=== PATIENT | male | born 1975 | race Caucasian/White ===

== ENCOUNTER 2021-01-31 07:54 | Emergency (ER) | payer SELFPAY ==
[2021-01-31 07:58] VITALS: BP 148/104; PULSE 88; RESP 16; TEMP 36.3; O2SAT 99; BMI 23.6
[2021-01-31 08:07] VITALS: O2SAT 99
--- NOTE | 2021-01-31 08:14 | EX.ED.DYSGE1 ---
HPI History of Present Illness Chief Complaint: Cold Sx Informant: patient Narrative Narrative: 45-year-old male states that he woke up this morning with nasal congestion, scratchy throat, chest tightness, and a sensation that he may have diarrhea. He called work and they needed him to get a Covid test and as he just moved here he came to the emergency room because he is not established with anybody. No reported fevers PFSH PFSH Medical History no medical history Home Medications NK 01/31/21 [History Last Taken Unknown] Allergy/AdvReac Type Severity Reaction Status Date / Time codeine Allergy PT UNSURE Verified 01/31/21 07:58 OF REACTION Surgical History no surgical history Social History (Updated 01/31/21 @ 08:[address] Emeterio Duke, DO) current gender identity: male Smoking Status: Current every day smoker tobacco type: cigarettes ROS ROS ED Constitutional Constitutional ED: Denies chills, fever(s) or weight loss Eyes Eyes: Denies change in vision or diplopia ENT ENT ED: Reports rhinorrhea and sore throat; Denies ear pain Cardiovascular Cardiovascular: Denies chest pain, orthopnea, palpitations or racing heartbeat Respiratory/Chest Respiratory/Chest: Denies cough, dyspnea or orthopnea Gastrointestinal Gastrointestinal: Denies abdominal pain, diarrhea, nausea or vomiting Genitourinary Genitourinary ED: Denies dysuria, hematuria or urinary frequency Musculoskeletal Musculoskeletal: Denies arthralgias or myalgias Integumentary Denies abscess or rash Neurologic Neurologic: Denies headache(s) or weakness Psychiatric Psychiatric: Denies anxiety, depression, suicidal ideation or suicidal thoughts Endocrine Endocrinology: Denies polydipsia, polyphagia or polyuria Allergic/Immunologic Allergic/Immunologic ED: Denies mouth swelling, tongue swelling or urticaria EXAM Physical Exam Const Vital Signs: 01/31/21 07:58 01/31/21 08:07 Temperature 97.4 F L Temperature Source Temporal Pulse Rate 88 Respiratory Rate 16 Respiratory Effort Short of Breath Respiratory Depth Normal Respiratory Pattern Normal Blood Pressure 148/104 H Blood Pressure Mean 118 Pulse Ox 99 Oxygen Delivery Method Room Air Room Air Positive well nourished and well developed General Appearance ED: well developed HEENT Reports normocephalic, head/scalp atraumatic, TM's clear and moist mucous membranes HEENT Narrative: Mild turbinate edema with rhinorrhea Negative for trauma Tympanic Membrane ED: Yes TM's clear Eyes PERRL and EOMs intact bilaterally Neck no lymphadenopathy, supple and no JVD Resp normal respiratory effort and clear to auscultation bilaterally Cardio regular rate, regular rhythm and no murmurs GI normal to inspection, nondistended, normoactive bowel sounds and non-tender Palpation: soft Back/Spine no CVA tenderness and normal ROM Extremity normal to inspection General Extremety ED: Negative for edema General Extremity: Negative for edema Neuro oriented x3 and CN's II-XII intact bilaterally Sensorium / Orientation: alert Motor Exam: strength 5/5 throughout Psych mental status grossly normal Mood & Affect: Negative for depressed or tearful Skin no rashes or lesions noted and no wounds MDM MDM MDM Narrative Medical decision making narrative: Patient's rapid Covid was negative. He was advised that he is being tested with only a couple hours worth of symptoms. And this may provide a false negative. He should still mask and observe himself. Return if worsening or concerns Discharge Plan Triage Chief Complaint: Cold Sx ED Provider: Emeterio Duke Dx/Rx/DC Orders Clinical Impression: Acute viral syndrome Instructions: ED Viral Syndrome (Adult) Prescriptions: No Action NK RF: 0 Primary Care Provider: Care Physician,No Primary Referrals: Devorah Brown MD [STAFF PHYSICIAN] - As Needed (for primary care ) Care Physician,No Primary [Primary Care Provider] - Activity Restrictions/Additional Instructions: Your Covid test was negative today. We would still recommend you mask and monitor yourself. As you have only had a few hours of symptoms this may result in a false negative test. Disposition Disposition: Home, Self Care
[2021-01-31 09:19] VITALS: PULSE 72; RESP 18; O2SAT 96
== END 2021-01-31 09:23 | disposition home or self-care (01) ==
PROVIDERS: Emergency Provider Emergency Medicine
DX: B34.9 Viral infection, unspecified (principal); Z20.822 Contact with and (suspected) exposure to COVID-19; R09.81 Nasal congestion; R09.89 Other specified symptoms and signs involving the circulatory and respiratory systems; F17.210 Nicotine dependence, cigarettes, uncomplicated
CPT/HCPCS: 87426; 99282

== ENCOUNTER 2021-05-06 17:26 | Emergency (ER) | payer OTHER, SELFPAY ==
[2021-05-06 17:26] VITALS: BP 125/87; PULSE 84; RESP 16; TEMP 36; O2SAT 100; BMI 23.6
--- NOTE | 2021-05-06 17:51 | EX.ED.UPPERE ---
HPI History of Present Illness Chief Complaint: Laceration Narrative Narrative: 45-year-old male, [id number], presents with injury to his right thumb that he sustained at 9:00 this morning, over 8 hours ago. He states he was working on his [id number], and a jagged piece of metal lacerated his right thumb pad across the thumb joint. He wrapped it up and continue to work. His came home, and told him that he needed stitches. Patient's last tetanus immunization was 2 years ago. He denies other injuries. He denies any bony tenderness to his thumb, and he did not sustain a crush injury. He presents with a laceration across his right thumb on the volar aspect. PFSH [facility] Home Medications NK 01/31/21 [History Last Taken Unknown] Allergy/AdvReac Type Severity Reaction Status Date / Time codeine Allergy PT UNSURE Verified 05/06/21 17:44 OF REACTION Social History Smoking Status: Former smoker ROS ROS ED ROS Narrative Constitutional: No fever, no chills. HEENT: No sore throat. No neck pain. No loss of vision. No rhinorrhea. Cardiovascular: No chest pain. No palpitations. No pedal edema. Respiratory: No cough, no shortness of breath. Abdominal: No abdominal pain. No nausea. No vomiting. Genitourinary: No dysuria. No hematuria. Musculoskeletal: No myalgias. No arthralgias. Neurologic: No headaches. No dizziness. No lightheadedness. Skin: No rash. No change in color. Laceration to right thumb pad. Psychiatric: No depression. No anxiety. EXAM Physical Exam Narrative Exam Narrative: Afebrile. Vital signs noted. HEENT: Normocephalic. Atraumatic. PERRL, EOMI. Neck soft and supple. No point tenderness or step off. Cardiovascular: Regular rate and rhythm. No murmurs, rubs, or gallops appreciated. Respiratory: No tachypnea. Lungs clear to auscultation bilaterally. Gastrointestinal: Abdomen soft, nontender, with normoactive bowel sounds. No rebound or guarding. Neurological: Awake. Alert. Nonfocal, nonlateralizing. Skin: No rash. Normal color. No pallor. There is a 2.2 cm laceration with mild skin avulsion across the right thumb pad, and the IP joint. He has good capillary refill. No bony tenderness. He is able to flex and extend the tip of his right thumb. He is uninjured at the wrist and above. Palpable radial pulse. No active bleeding. Musculoskeletal: No pedal edema. Full range of motion extremities. Const Vital Signs: 05/06/21 17:26 Temperature 96.8 F L Temperature Source Temporal Pulse Rate 84 Respiratory Rate 16 Blood Pressure 125/87 H Blood Pressure Mean 99 Pulse Ox 100 Oxygen Delivery Method Room Air MDM MDM MDM Narrative Medical decision making narrative: Patient was told that this wound is older than 6 hours and that he has a greater chance of infection than if he would have come in earlier. However, given the size of his laceration, I do feel that he needs skin approximation. See procedure note for details. He was told of the risk of infection and scarring and acknowledges an understanding. As this is a delayed presentation, skin edges were approximated, but not tightly. He will have the sutures removed by his primary care physician in 10 days. Return instructions to the emergency department were reviewed. Disposition is discharged home in stable condition. Procedures Lacerations Right thumb laceration: Length: 26.4 in Depth: Skin Shape: Linear (With slight irregularity and skin avulsion) Prep: Elisabet Laceration repair: Irrigated, Lidocaine (1%), Local, Skin sutures and Wound explored Irrigated (ml): 200 Number of Sutures/Hosea: 7 Suture Information: Ethilon and 4-0 Comment: Patient tolerated procedure well Discharge Plan Triage Chief Complaint: Laceration ED Provider: Dalton Hernandez Dx/Rx/DC Orders Clinical Impression: Laceration of thumb, right Instructions: ED Laceration, Hand: All Closures Prescriptions: No Action NK RF: 0 Primary Care Provider: Care Physician,No Primary Referrals: Carola Shrestha MD [STAFF PHYSICIAN] - 10 Day for suture removal Care Physician,No Primary [Primary Care Provider] - Disposition Disposition: Home, Self Care
[2021-05-06] MEDS: Lidocaine 1% (20 ml mdv) 20 ML Vial 10 ML INFILT (18:25)
== END 2021-05-06 18:52 | disposition home or self-care (01) ==
PROVIDERS: Emergency Provider Emergency Medicine; Visit Provider Emergency Medicine
DX: S61.011A Laceration without foreign body of right thumb without damage to nail, initial encounter (principal); Z87.891 Personal history of nicotine dependence; X58.XXXA Exposure to other specified factors, initial encounter
CPT/HCPCS: 12001; 99282

== ENCOUNTER 2021-05-09 09:23 | Emergency (ER) | payer OTHER, SELFPAY ==
[2021-05-09 09:24] VITALS: BP 135/86; PULSE 82; RESP 17; TEMP 37.3; O2SAT 97; BMI 23.3
--- NOTE | 2021-05-09 10:13 | EDS_ITS ---
HPI History of Present Illness Chief Complaint: General Illness Narrative Narrative: 45-year-old male presenting with chief complaint of facial rash over his face daughter. This is in the distribution of the mask has been wearing. He also has a rash around where his hat has been on his head. Patient states he had a laceration repaired on his right thumb on the first and he was told to watch for signs of infection. He has not had a fever but does state that he feels cold and sometimes is sweaty. He denies a cough, shortness of breath. He denies abdominal pain, nausea, vomiting, diarrhea. He states that his thumb feels like it is improving. He has no sign of infection from his thumb and has been monitoring it. He denies any new soaps, dyes, linens, no detergents etc. Patient's rash is clearly isolated to only his face. PFSH PFSH Medical History no medical history Home Medications doxycycline hyclate 100 mg PO DAILY #7 cap 05/09/21 [Rx Last Taken Unknown] prednisone 50 mg PO DAILY 5 Days #25 tab 05/09/21 [Rx Last Taken Unknown] Allergy/AdvReac Type Severity Reaction Status Date / Time codeine Allergy PT UNSURE Verified 05/09/21 09:23 OF REACTION Surgical History no surgical history Social History Smoking Status: Former smoker ROS ROS ED Constitutional Constitutional ED: Reports chills and sweats; Denies fever(s) Eyes Eyes: Denies blurry vision or diplopia ENT ENT ED: Denies rhinorrhea or sore throat Cardiovascular Cardiovascular: Denies chest pain or palpitations Respiratory/Chest Respiratory/Chest: Denies cough or dyspnea Gastrointestinal Gastrointestinal: Denies abdominal pain, nausea or vomiting Genitourinary Genitourinary ED: Denies dysuria or hematuria Musculoskeletal Musculoskeletal: Denies arthralgias or myalgias Integumentary Reports rash Neurologic Neurologic: Denies headache(s) or weakness Psychiatric Psychiatric: Denies anxiety or depression Endocrine Endocrinology: Denies polydipsia or polyuria EXAM Physical Exam Const Vital Signs: 05/09/21 09:24 Temperature 99.2 F H Temperature Source Temporal Pulse Rate 82 Respiratory Rate 17 Respiratory Effort Normal Non-Labored Respiratory Pattern Normal Blood Pressure 135/86 H Blood Pressure Mean 102 Pulse Ox 97 Oxygen Delivery Method Room Air Positive well nourished General Appearance ED: NAD ORVILLEENT Reports moist mucous membranes Negative for trauma Eyes EOMs intact bilaterally Neck no lymphadenopathy and supple Chest Wall inspection of chest normal Resp normal respiratory effort and clear to auscultation bilaterally Neuro oriented x3, CN's II-XII intact bilaterally and no sensory deficits noted Sensorium / Orientation: alert Motor Exam: strength 5/5 throughout Skin Skin Narrative: Erythematous urticarial rash in the distribution of the patient's care 95 mask. There is also erythema around the scalp line where his winter Is. The rest of the face is free of rash. Right thumb has no sign of infection. There is no drainage. There is no lymphangitic streaking. Right hand and right upper extremity are nontender. No lymphadenopathy. MDM MDM MDM Narrative Medical decision making narrative: Patient with facial rash which looks to be focally under the ring of his winter And on his face where his mask is. It is itching in nature and appears to be allergic in nature. He has not had a fever. Examination of his right hand shows that his hand is healing well there is no discharge from his sutures. There is no swelling. He has minimal pain. There is no lymphangitic streaking. Because of his concern with feeling cold and hot I did obtain blood work and his CBC shows no leukocytosis. His hemoglobin hematocrit are stable. Platelets are normal. Renal function electrolytes within normal limits. Patient was given Solu-Medrol and Benadryl and he states that his itching has improved significantly. I do not believe this is cellulitic in nature. I will put him on a burst of prednisone for home. He can take Benadryl with this. I counseled him that if his rash should not improve that I will send him a [id number] prescription for doxycycline. He is given return precautions. Impression: 1. Contact dermatitis Lab Data Labs: Laboratory Results - last 24 hr 05/09/21 05/09/21 10:53 10:53 WBC 4.5 RBC 4.72 Hgb 14.9 Hct 44.3 MCV 93.9 MCH 31.6 MCHC 33.6 RDW Std Deviation 40.1 RDW Coeff of Jessika 11.6 Plt Count 194 MPV 10.3 Immature Gran % (Auto) 0.200 Neut % (Auto) 38.5 L Lymph % (Auto) 44.3 H [place] % (Auto) 15.6 H Eos % (Auto) 0.7 Baso % (Auto) 0.7 Absolute Neuts (auto) 1.7 L Absolute Lymphs (auto) 1.99 Nucleated RBC % 0 Sodium 137 Potassium 4.2 Chloride 104 Carbon Dioxide 26.0 Anion Gap 7 BUN 12 Creatinine 1.08 Estim Creat Clear Calc 84.56 Est GFR (MDRD) Af Amer 94 Est GFR (MDRD) Non-Af 78 BUN/Creatinine Ratio 11.1 Glucose 97 Calcium 8.4 L Discharge Plan Triage Chief Complaint: General Illness ED Provider: Gerald De Santiago Dx/Rx/DC Orders Instructions: ED Contact Dermatitis Prescriptions: New doxycycline hyclate 100 mg capsule 100 mg PO DAILY Qty: 7 RF: 0 prednisone 10 mg tablet 50 mg PO DAILY 5 Days Qty: 25 RF: 0 Stand Alone Forms: ED Work / School Excuse Primary Care Provider: Care Physician,No Primary Referrals: Care Physician,No Primary [Primary Care Provider] - Disposition Disposition: Home, Self Care Discharge Date/Time: 05/09/21 12:51
[2021-05-09 11:02] LABS: Absolute Lymphocyte Count 1.99 X10^3/uL (0.83-4.51); Absolute Neutrophil Count 1.7 X10^3/uL (2.0-7.7); Basophil# 0.03 X10^3/uL; Basophil% 0.7 % (0-1); Eosinophil# 0.03 X10^3/uL; Eosinophils% 0.7 % (0-5); Hematocrit 44.3 % (40-54); Hemoglobin 14.9 g/dL (13.0-16.5); Lymphocyte # 1.99 X10^3/ul (0.83-4.51); Lymphocyte % 44.3 % (19-41); Mean Corp Hgb Conc 33.6 g/dL (32-36); Mean Corpuscular Hgb 31.6 pg (27.0-32.0); Mean Corpuscular Volume 93.9 fL (80-94); Mean Platelet Vol. 10.3 fl (6.2-12.0); Monocyte% 15.6 % (0-10); NRBC Flagged by Analyzer 0 % (0-5); Neutrophil # 1.73 X10^3/uL (2.7-7.7); Neutrophil % 38.5 % (47-70); Platelet Count 194 K/mm3 (150-450); RBC Distribution Width CV 11.6 % (11.6-14.6); RBC Distribution Width SD 40.1 fl (35.1-43.9); Red Blood Count 4.72 M/mm3 (4.6-6.2); White Blood Count 4.5 K/mm3 (4.4-11.0)
[2021-05-09 11:15] LABS: Anion Gap 7 (5-15); BUN 12 mg/dL (7-18); BUN/Creat Ratio 11.1 RATIO (10-20); Calcium,Total 8.4 mg/dL (8.5-10.1); Chloride 104 mmol/L (98-107); Creatinine, Serum 1.08 mg/dL (0.70-1.30); EST Glomerular Filtration Rate 78 mL/min (>60); Est Glom Filt Rate - Afr Amer 94 mL/min (>60); Estimated Creatinine Clearance 84.56 ml/min; Glucose 97 mg/dL (74-106); Potassium 4.2 mmol/L (3.5-5.1); Sodium Level 137 mmol/L (136-145)
[2021-05-09] MEDS: MethylPREDNISolone 125 MG/2 ML Vial IV (11:18)
[2021-05-09] MEDS: DiphenhydrAMINE 50 MG/ML Syringe 25 MG IV (11:18)
--- NOTE | 2021-05-09 11:49 | CM.ED ---
SW Note Referral Source: Case Find Referral Reason: No PCP SW met with patient and provided him with [facility] Healthcare Provider list and encouraged him to contact provider for PCP. SW remains available if needs arise. Plan: Resources provided Cydney QUINTERO
== END 2021-05-09 12:51 | disposition home or self-care (01) ==
PROVIDERS: Emergency Provider Student in an Organized Health Care Education/Training Program; Visit Provider Student in an Organized Health Care Education/Training Program
DX: L25.9 Unspecified contact dermatitis, unspecified cause (principal); Z87.891 Personal history of nicotine dependence; S61.011D Laceration without foreign body of right thumb without damage to nail, subsequent encounter
CPT/HCPCS: 80048; 85025; 96374; 96375; 99283

== ENCOUNTER 2022-05-27 12:29 | Emergency (ER) | payer OTHER, SELFPAY ==
[2022-05-27 12:29] VITALS: BP 105/83; PULSE 77; RESP 16; TEMP 35.4; O2SAT 99; BMI 21.5
--- NOTE | 2022-05-27 12:44 | EDS_ITS ---
HPI HPI - GI History of Present Illness Chief Complaint: Nausea/Vomiting Detail of Chief Complaint: This morning. Denies any abdominal pain. Informant: patient Diarrhea/Melena/Hematochezia GI Symptom: Negative for Diarrhea or Melena Associated Symptoms Associated Symptoms: Negative for Dysuria or Frequency Narrative Narrative: Healthy 46-year-old male no signal past medical or surgical history. Denies any prior abdominal surgeries. States today around 7 AM to start having nausea and vomiting. No diarrhea. No fever. Denies any abdominal pain. Lives at home with his and son and they are not sick. He denies any dysuria. No hematemesis. No melena. Prior similar symptoms: Yes Recent Illness/Hospitalization: No PFSH PFSH Medical History Laceration of left elbow Home Medications cephalexin 500 mg capsule 500 mg PO TID #21 caps 12/26/21 [Rx Last Taken Unknown] ondansetron 4 mg disintegrating tablet 4 mg PO Q8H PRN PRN Nausea #10 tabs 05/27/22 [Rx Last Taken Unknown] Allergy/AdvReac Type Severity Reaction Status Date / Time codeine Allergy PT UNSURE Verified 01/12/22 17:16 OF REACTION Surgical History no surgical history no surgical history Social History Smoking Status: Former smoker ROS ROS ED ROS Narrative Nausea and vomiting today. No abdominal pain. No fever. No dysuria. Review of Systems ROS Unobtainable: Denies due to encephalopathy Constitutional Constitutional ED: Denies chills or fever(s) ENT ENT ED: Denies ear pain Cardiovascular Cardiovascular: Denies chest pain Respiratory/Chest Respiratory/Chest: Denies cough or dyspnea Gastrointestinal Gastrointestinal: Reports nausea and vomiting; Denies abdominal pain, constipation, diarrhea or melena Genitourinary Genitourinary ED: Denies dysuria or hematuria Musculoskeletal Musculoskeletal: Denies arthralgias Integumentary Denies abscess Neurologic Neurologic: Denies headache(s) Psychiatric Psychiatric: Denies anxiety Endocrine Endocrinology: Denies polydipsia Hematologic/Lymphatic Hematologic/Lymphatic: Denies easy bleeding Allergic/Immunologic Allergic/Immunologic ED: Denies mouth swelling EXAM Physical Exam Narrative Exam Narrative: 38-year-old male vital signs stable afebrile. Does not look septic or toxic. Does not look significantly dehydrated. H EENT exam unremarkable. Moist with members. Neck nontender no lymphadenopathy. Lungs clear to auscultation bilaterally. Heart regular rhythm rate about 80 no murmur. Abdomen soft, nontender, nondistended, normal bowel sounds without peritoneal signs. No hernia or mass. No distention. No obstruction. No right upper nor any right lower quadrant tenderness. Moving all 4 extremities. Back nontender. Neurologically is awake and alert with no focal motor deficits. Mildly anxious. Const Vital Signs: 05/27/22 12:29 Temperature 95.7 F L Temperature Source Temporal Pulse Rate 77 Respiratory Rate 16 Blood Pressure 105/83 H Blood Pressure Mean 90 Pulse Ox 99 Oxygen Delivery Method Room Air Positive well nourished and well developed; Negative for obese, cachectic, contractures or unkempt General Appearance ED: well developed and NAD; Negative for unkempt, cachectic, contractures or pallor Nutritional Appearance: Negative for cachectic or obese HEENT Reports moist mucous membranes normocephalic and atraumatic; Negative for trauma or tenderness Eyes PERRL and EOMs intact bilaterally General Eye ED: Negative for pale conjunctiva or scleral icterus Neck no lymphadenopathy, supple and no JVD General: Negative for tenderness Lymph Lymphatic: Negative for other Resp normal respiratory effort and clear to auscultation bilaterally Effort and Inspection: Negative for respiratory distress Auscultation: Negative for rales, rhonchi or wheezes Cardio regular rate, regular rhythm, S1 normal heart sound, S2 normal heart sound and no murmurs Rate: Negative for bradycardia Rhythm: Negative for abnormal rhythm GI non-tender, non-distended and no masses Inspection: Negative for abdominal distention Auscultation: normoactive bowel sounds Palpation: soft; Negative for tender, guarding, rigid, hepatomegaly, splenomegaly, hernia, mass, pulsatile mass or rebound tenderness present Back/Spine no CVA tenderness General Back: Negative for CVA tenderness Cervical Spine: Negative for cervical spine tenderness Thoracic Spine / Upper Back: Negative for thoracic spinal tenderness Lumbar Spine / Lower Back: Negative for lumbar spinal tenderness Neuro CN's II-XII intact bilaterally and moves all extremities Sensorium / Orientation: alert, oriented to person, oriented to place and orien shereen to time; Negative for orientation impaired or confused Motor Exam: strength 5/5 throughout Psych mental status grossly normal and thought process normal Appearance: Negative for unkempt Attitude: No agitated Mood & Affect: Negative for depressed or tearful Skin no wounds General Skin Exam: Negative for jaundice or pallor Lesions: no lesions Rashes: no rashes Trauma: Negative for abrasion Nails: Negative for discolored MDM MDM MDM Narrative Medical decision making narrative: 46-year-old male with nausea vomiting most likely secondary to viral syndrome. He does smoke marijuana occasionally could be also hyperemesis due to cannabis. Will be treated with a liter normal saline and Zofran and p.o. fluid challenge and reassess. He has no abdominal pain. I do not think he needs any imaging or CAT scan. He does not need labs at this time. He will be reassessed. Multiple repeat exams patient is doing well. Abdomen is benign. Nontender. No abdominal pain. At 1:52 PM his nausea is resolved. He received a liter normal saline. He has been able to drink some water and hold it down. He is comfortable being discharged home. He will be written for Zofran. Follow-up if not improving or return if worse. Most likely viral syndrome. I did explain to him this could also be secondary to marijuana use. History & Record Review Discussion w/independent historian: Patient Discharge Plan Triage Chief Complaint: Nausea/Vomiting ED Provider: Tahddeus Alcantara Dx/Rx/DC Orders Clinical Impression: Nausea & vomiting, Viral syndrome Instructions: ED Viral Syndrome (Adult), ED Vomiting (Adult) Prescriptions: New ondansetron 4 mg tablet,disintegrating 4 mg PO Q8H PRN PRN (Reason: Nausea) Qty: 10 0RF No Action cephalexin 500 mg capsule 500 mg PO TID Qty: 21 0RF Primary Care Provider: Care Physician,No Primary Referrals: Yariel Goodman MD [Med Staff - Architectural Draftsman] - 3-5 Days if not improving Care Physician,No Primary [Primary Care Provider] - Activity Restrictions/Additional Instructions: Zofran as needed for nausea you may swallow or let it dissolve under your tongue. Plenty of fluids and rest. Increase your diet slowly as tolerated. Return if unable to keep fluids down or feeling worse. If this is a virus that should progressively improve. Follow-up with your doctor if not improving. Disposition Disposition: Home, Self Care
[2022-05-27] MEDS: Ondansetron 4 MG/2 ML Vial IV (13:00)
--- NOTE | 2022-05-27 13:58 | ED.RN ---
patient removed IV by accident. pt has minimal bleeding.
== END 2022-05-27 13:59 | disposition home or self-care (01) ==
PROVIDERS: Emergency Provider Emergency Medicine; Visit Provider Emergency Medicine
DX: R11.2 Nausea with vomiting, unspecified (principal); B34.9 Viral infection, unspecified; Z87.891 Personal history of nicotine dependence
CPT/HCPCS: 96374; 99283; J7040; A4216; J2405

== ENCOUNTER → 2022-08-21 | Outpatient (CLI) | payer OTHER, SELFPAY ==
--- NOTE | 2022-08-21 13:09 | RAD_ITS ---
STUDY: X-RAY - THORACIC SPINE REASON FOR EXAM: Male, 47 years old. Pain. TECHNIQUE: 2 view(s) of the thoracic spine were obtained on 3 images. COMPARISON: None. FINDINGS: Normal kyphosis of the thoracic spine. No substantial scoliosis. Normal thoracic vertebrae and endplates. Diffuse mild intervertebral disc space narrowing with small osteophytes. Normal soft tissues. RAD/Thoracic Spine 2 Views IMPRESSION: Mild thoracic spondylosis with no other abnormality. Electronically Signed: Dmitriy Sheehan MD at 14:11 EDT ,
--- NOTE | 2022-08-21 13:09 | RAD_ITS ---
STUDY: X-RAY - LUMBOSACRAL SPINE REASON FOR EXAM: Male, 47 years old. Pain. TECHNIQUE: 6 view(s) of the lumbosacral spine were obtained including lateral flexion and extension views. COMPARISON: None FINDINGS: Normal lumbar lordosis. No substantial scoliosis. Normal alignment of the vertebrae. Normal vertebral bodies and endplates. Intervertebral disc space narrowing at L4-5 and L5-S1 with vacuum phenomenon at L5-S1. Limited flexion and extension with no abnormal motion. Normal visualized soft tissue structures. RAD/L/S Spine w Bend Min 6 Vw IMPRESSION: Limited flexion and extension. Lower lumbosacral spondylosis at L4-5 and to the greatest degree L5-S1. No acute abnormality or erosive changes. Electronically Signed: Dmitriy Sheehan MD at 14:54 EDT ,
== END | disposition home or self-care (01) ==
PROVIDERS: PCP Family Medicine; Referring Provider Family Medicine; Visit Provider Family Medicine
DX: M54.6 Pain in thoracic spine (principal); M54.50 Low back pain, unspecified
CPT/HCPCS: 72070; 72114

== ENCOUNTER → 2022-09-19 | Outpatient (CLI) | payer OTHER, SELFPAY ==
--- NOTE | 2022-09-19 07:06 | MRI_ITS ---
INDICATION: LBP ACUTE ON CHRONIC, X 2 MONTHS EXAMINATION: MRI - MR Spine Lumbar W/O Contrast TECHNIQUE: Multiplanar and multisequence MR images of the lumbar spine. IV Contrast Dosage and Agent: None. COMPARISON: Lumbar spine radiographs of 08/21/2022. FINDINGS: VERTEBRAE: Vertebral body heights are preserved. No compression fracture. No significant facet hypertrophy. Endplate degenerative changes noted at the L5/S1 level. VERTEBRAL ALIGNMENT: No spondylolisthesis. There is preservation of the normal lumbar lordosis. CORD: Normal position and signal intensity of the conus medullaris. Nerve roots within the cauda equina do not appear abnormally thickened and clumped. DISCS: T11/12 through L3/4 disc spaces are preserved; these discs show normal signal intensity. No annular bulge or disc extrusion is seen at this levels. There is no thecal sac stenosis or neural foraminal encroachment at these levels. L4/5 and L5/S1 discs are degenerated. Mild disc space narrowing noted at L4/5. Moderate disc space narrowing is present at L5/S1 with endplate degenerative changes. L4/5 disc shows a broad-based annular bulge with a posterior annular fissure; the bulge mildly flattens the ventral aspect of the thecal sac and minimally narrows the inferior neural foramina. L5/S1 disc shows a broad-based annular bulge and broad-based central disc protrusion; the central disc protrusion extends through the pericecal fat and minimally indents the ventral aspect of the thecal sac. The annular bulge contacts and slightly effaces the traversing S1 nerve root sleeves, greater on the left. The broad-based annular bulge moderately narrows the inferior neural foramina, slightly greater on the left. There is no thecal sac stenosis. No abnormal epidural fluid collection is identified on this nonenhanced scan. SOFT TISSUES: Unremarkable. The visualized abdominal aorta is normal in caliber. The psoas muscles are symmetric. No paraspinal soft tissue swelling is seen. No hydronephrosis is noted. MRI/Spine Lumbar (Routine) IMPRESSION: Broad-based annular bulge and posterior annular fissure at the L4/5 level. Broad-based annular bulging and central disc protrusion at the L5/S1 level; the annular bulge contacts and mildly effaces the traversing S1 nerve root sleeves, greater on the left, and the annular bulge narrows the inferior neural foramina at the L5/S1 level. Electronically Signed: Dimitris Mccrary MD at 4:39 EDT ,
== END | disposition home or self-care (01) ==
PROVIDERS: PCP Family Medicine; Referring Provider Family Medicine; Visit Provider Family Medicine
DX: M54.42 Lumbago with sciatica, left side (principal)
CPT/HCPCS: 72148

== ENCOUNTER 2022-10-11 21:48 | Emergency (ER) | payer OTHER, SELFPAY ==
[2022-10-11 21:48] VITALS: BP 111/76; PULSE 61; RESP 14; TEMP 36.4; O2SAT 99; BMI 21.9
--- NOTE | 2022-10-11 23:01 | ED.RN ---
Went to call patient from the waiting room and he was no longer here.
== END 2022-10-11 23:01 | disposition left against medical advice (07) ==
LOC: ED 23:35
PROVIDERS: PCP Family Medicine
DX: B34.9 Viral infection, unspecified (principal); F12.99 Cannabis use, unspecified with unspecified cannabis-induced disorder; R11.2 Nausea with vomiting, unspecified; Z87.891 Personal history of nicotine dependence

== ENCOUNTER 2023-05-06 09:37 | Emergency (ER) | payer SELFPAY ==
[2023-05-06 09:38] VITALS: BP 118/76; PULSE 58; RESP 16; TEMP 36.1; O2SAT 100; BMI 22.5
--- NOTE | 2023-05-06 09:53 | CT_ITS ---
STUDY: CT ABDOMEN AND PELVIS WITH CONTRAST REASON FOR EXAM: Male, 47 years old. LLQ pain RADIATION DOSAGE (If Supplied By Facility): CTDIvol = ( 13.43 ) mGy, DLP = ( 353.55 ) mGycm TECHNIQUE: Transaxial images were obtained from the dome of the diaphragm to the symphysis pubis without oral contrast. IV 100mL Isovue-370 was administered. Sagittal and coronal images were reconstructed. Individualized dose optimization techniques were used for this CT. COMPARISON: None. FINDINGS: The visualized lung bases are unremarkable. The visualized portions of the heart are within normal limits. Normal liver. Normal gallbladder and extrahepatic biliary system. Normal spleen. Normal pancreas. Normal bilateral adrenal glands. Normal right kidney. Normal left kidney. Normal visualized stomach. Normal small intestine. There is wall thickening of the splenic flexure and descending colon. There is non-visualization of the appendix. Normal abdominal aorta. Normal inferior vena cava. Normal retroperitoneum. Normal urinary bladder. There is no free fluid in the abdomen or pelvis. Normal abdominal wall. Normal osseous structures. CT/Abdomen/Pelvis W IV Cont ONLY IMPRESSION: Colitis with wall thickening on the left could be infectious or inflammatory. No obstruction. Electronically Signed: Dominic Bruner MD at 11:40 EDT ,
--- NOTE | 2023-05-06 09:55 | EDS_ITS ---
HPI History of Present Illness Chief Complaint: Abd Pain Detail of Chief Complaint: Abdominal pain, GI bleed Informant: patient Narrative Narrative: Patient presents secondary to abdominal pain and GI bleed. He states last evening he started feeling sick after eating tacos. He passed a large hard stool but since then has been passing blood and blood clots rectally. He complains of pain to the left lower quadrant. He believes he has had colitis and diverticulitis in the past. [facility] Medical History Laceration of left elbow Home Medications NK 01/21/23 [History Last Taken Unknown] ciprofloxacin HCl 500 mg tablet 500 mg PO BID #20 TABLETS 05/06/23 [Rx Last Taken Unknown] hydrocodone-acetaminophen 5-325mg 5mg-325mg 1 tab PO Q6H PRN PRN Pain 3 days #10 TABLETS 05/06/23 [Rx Last Taken Unknown] metronidazole 500 mg tablet 500 mg PO Q12H 10 days #20 tabs 05/06/23 [Rx Last Taken Unknown] prednisone 20 mg tablet 40 mg (2 x 20 mg) PO DAILY #8 tabs 05/06/23 [Rx Last Taken Unknown] Allergy/AdvReac Type Severity Reaction Status Date / Time codeine Allergy PT UNSURE Verified 05/06/23 09:39 OF REACTION Social History Smoking Status: Former smoker ROS ROS ED Constitutional Constitutional ED: Denies chills or fever(s) Eyes Eyes: Denies discharge from eye(s) ENT ENT ED: Denies discharge from eye(s), rhinorrhea or sore throat Cardiovascular Cardiovascular: Denies chest pain or palpitations Respiratory/Chest Respiratory/Chest: Denies cough or dyspnea Gastrointestinal Gastrointestinal: Reports abdominal pain and other Details: Bright red blood per rectum ; Denies diarrhea, nausea or vomiting Genitourinary Genitourinary ED: Denies dysuria Musculoskeletal Musculoskeletal: Denies back pain or extremity pain Integumentary Denies Abrasions or rash Neurologic Neurologic: Denies headache(s) or weakness Psychiatric Psychiatric: Denies anxiety or depression Allergic/Immunologic Allergic/Immunologic ED: Denies lip swelling or urticaria EXAM Physical Exam Const Vital Signs: 05/06/23 09:38 05/06/23 11:37 Temperature 97 F L Temperature Source Temporal Pulse Rate 58 L 72 Respiratory Rate 16 18 Blood Pressure 118/76 112/88 H Blood Pressure Mean 90 96 Pulse Ox 100 99 Oxygen Delivery Method Room Air Room Air Positive well nourished and well developed General Appearance ED: well developed HEENT Reports moist mucous membranes Eyes EOMs intact bilaterally Chest Wall inspection of chest normal and palpation of chest normal Resp normal respiratory effort and clear to auscultation bilaterally Cardio regular rate and regular rhythm GI GI Narrative: Abdomen soft with focal tenderness in the left lower quadrant. No guarding or rebound. Hypoactive bowel sounds. Extremity normal to inspection Neuro oriented x3 and no sensory deficits noted Motor Exam: strength 5/5 throughout Psych mental status grossly normal Skin no rashes or lesions noted MDM MDM MDM Narrative Medical decision making narrative: IV line established. Patient given morphine and Zofran for pain and nausea. Labwork obtained to evaluate for leukocytosis, anemia, and electrolyte derangement. CT scan of the abdomen pelvis with IV contrast obtained to evaluate for colitis, diverticulitis, focal abscess. History & Record Review Discussion w/independent historian: Patient Lab Data Attestation: I reviewed the patient's lab results. Labs: Laboratory Results - last 24 hr 05/06/23 10:00 WBC 10.1 RBC 4.59 L Hgb 14.2 Hct 42.5 MCV 92.6 MCH 30.9 MCHC 33.4 RDW Std Deviation 40.0 RDW Coeff of Jessika 11.9 Plt Count 248 MPV 10.5 Immature Gran % (Auto) 0.300 Neut % (Auto) 68.6 Lymph % (Auto) 25.5 [place] % (Auto) 5.1 Eos % (Auto) 0.3 Baso % (Auto) 0.2 Absolute Neuts (auto) 7.0 Absolute Lymphs (auto) 2.59 Nucleated RBC % 0 PT 13.2 INR 1.0 APTT 27.7 Sodium 137 Potassium 3.7 Chloride 105 Carbon Dioxide 26.0 Anion Gap 6 BUN 12 Creatinine 0.97 Estim Creat Clear Calc 90.07 Est GFR (MDRD) Af Amer 106 Est GFR (MDRD) Non-Af 87 BUN/Creatinine Ratio 12.4 Glucose 102 Calcium 8.7 Radiography Diagnostic Testing: Clinical Impression(s) from Imaging Studies Abdomen/Pelvis CT 05/06/23 09:53 IMPRESSION: Colitis with wall thickening on the left could be infectious or inflammatory. No obstruction. Electronically Signed: Dominic Bruner MD at 11:40 EDT , Treatment and Re-Evaluation :: CBC was normal white count 10.1 with 68% neutrophils. Hemoglobin is 14.2. This is consistent with his prior labs. Chemistry studies are unremarkable. CT scan of the abdomen pelvis with IV contrast reveals colitis with wall thickening on the left which could be infectious or inflammatory. No evidence of obstruction. Patient will be given prednisone along with Cipro and Flagyl, first dose is given here. He has not seen anyone for colonoscopy since moving to this area and will be referred to general surgery for follow-up. Return instructions are given. Patient comfortable with the plan. Discharge Plan Triage Chief Complaint: Abd Pain ED Provider: Leslie Khan Dx/Rx/DC Orders Clinical Impression: Colitis Instructions: ED Understanding Colitis Prescriptions: New prednisone 20 mg tablet 40 mg PO DAILY Qty: 8 0RF ciprofloxacin HCl 500 mg tablet 500 mg PO BID Qty: 20 0RF metronidazole 500 mg tablet 500 mg PO Q12H 10 Days Qty: 20 0RF hydrocodone-acetaminophen 5-325 mg tablet 1 tab PO Q6H PRN PRN (Reason: Pain) 3 Days Qty: 10 0RF No Action NK Primary Care Provider: Jose Alfredo Marino Referrals: Malcolm Leon MD [Med Staff - Active Staff] - 1-2 Weeks Jose Alfredo Marino MD [Primary Care Provider] - Disposition Disposition: Home, Self Care
[2023-05-06] MEDS: Ondansetron 4 MG/2 ML Vial IV (10:06)
[2023-05-06] MEDS: 0.9% Normal Saline (1000mL) 1,000 ML 150 ML IV (10:06)
[2023-05-06] MEDS: Morphine 4 MG/ML Syringe IV ×2 (10:06→11:35)
[2023-05-06 10:11] LABS: Absolute Lymphocyte Count 2.59 X10^3/uL (0.83-4.51); Basophil# 0.02 X10^3/uL; Basophil% 0.2 % (0-1); Eosinophil# 0.03 X10^3/uL; Eosinophils% 0.3 % (0-5); Hematocrit 42.5 % (40-54); Hemoglobin 14.2 g/dL (13.0-16.5); Lymphocyte # 2.59 X10^3/ul (0.83-4.51); Lymphocyte % 25.5 % (19-41); Mean Corp Hgb Conc 33.4 g/dL (32-36); Mean Corpuscular Hgb 30.9 pg (27.0-32.0); Mean Corpuscular Volume 92.6 fL (80-94); Mean Platelet Vol. 10.5 fl (6.2-12.0); Monocyte# 0.52 X10^3/uL; Monocyte% 5.1 % (0-10); NRBC Flagged by Analyzer 0 % (0-5); Neutrophil # 6.95 X10^3/uL (2.7-7.7); Neutrophil % 68.6 % (47-70); Platelet Count 248 K/mm3 (150-450); RBC Distribution Width CV 11.9 % (11.6-14.6); Red Blood Count 4.59 M/mm3 (4.6-6.2); White Blood Count 10.1 K/mm3 (4.4-11.0)
[2023-05-06 10:17] LABS: Prothrombin Time (Protime)PT. 13.2 SECONDS (11.7-14.9)
[2023-05-06 10:18] LABS: Partial Thromboplast Time 27.7 Seconds (24.1-36.2)
[2023-05-06 10:20] LABS: Anion Gap 6 (5-15); BUN 12 mg/dL (7-18); BUN/Creat Ratio 12.4 RATIO (10-20); Calcium,Total 8.7 mg/dL (8.5-10.1); Chloride 105 mmol/L (98-107); Creatinine, Serum 0.97 mg/dL (0.70-1.30); EST Glomerular Filtration Rate 87 mL/min (>60); Est Glom Filt Rate - Afr Amer 106 mL/min (>60); Estimated Creatinine Clearance 90.07 ml/min; Glucose 102 mg/dL (74-106); Potassium 3.7 mmol/L (3.5-5.1); Sodium Level 137 mmol/L (136-145)
[2023-05-06] MEDS: Dicyclomine 10 MG Capsule 20 MG PO (11:35)
[2023-05-06 11:37] VITALS: BP 112/88; PULSE 72; RESP 18; O2SAT 99
[2023-05-06] MEDS: Ciprofloxacin 500 MG Tablet PO (12:07)
[2023-05-06] MEDS: predniSONE 20 MG Tablet 40 MG PO (12:07)
[2023-05-06] MEDS: metroNIDAZOLE 500 MG Tablet PO (12:07)
[2023-05-06 12:10] VITALS: BP 112/88; PULSE 72; RESP 18; TEMP 36.8; O2SAT 99
== END 2023-05-06 12:15 | disposition home or self-care (01) ==
PROVIDERS: Emergency Provider Emergency Medicine; PCP Family Medicine; Visit Provider Emergency Medicine
DX: K52.9 Noninfective gastroenteritis and colitis, unspecified (principal); Z87.891 Personal history of nicotine dependence
CPT/HCPCS: 74177; 80048; 85025; 85610; 85730; 96361; 96374; 96375; 96376; 99284; Q9967; A4216; J2405

== ENCOUNTER → 2023-05-14 | Outpatient (CLI) | payer SELFPAY ==
[2023-05-14 15:23] LABS: Absolute Lymphocyte Count 3.31 X10^3/uL (0.83-4.51); Absolute Neutrophil Count 4.4 X10^3/uL (2.0-7.7); Basophil# 0.02 X10^3/uL; Basophil% 0.2 % (0-1); Eosinophil# 0.12 X10^3/uL; Eosinophils% 1.4 % (0-5); Hematocrit 44.9 % (40-54); Hemoglobin 14.9 g/dL (13.0-16.5); Lymphocyte # 3.31 X10^3/ul (0.83-4.51); Lymphocyte % 37.8 % (19-41); Mean Corp Hgb Conc 33.2 g/dL (32-36); Mean Corpuscular Hgb 31.4 pg (27.0-32.0); Mean Corpuscular Volume 94.7 fL (80-94); Mean Platelet Vol. 10.7 fl (6.2-12.0); Monocyte# 0.72 X10^3/uL; Monocyte% 8.2 % (0-10); NRBC Flagged by Analyzer 0 % (0-5); Neutrophil # 4.43 X10^3/uL (2.7-7.7); Neutrophil % 50.6 % (47-70); POSITIVE MORPHOLOGY YES; Platelet Count 300 K/mm3 (150-450); RBC Distribution Width CV 12.1 % (11.6-14.6); RBC Distribution Width SD 42.4 fl (35.1-43.9); Red Blood Count 4.74 M/mm3 (4.6-6.2); White Blood Count 8.8 K/mm3 (4.4-11.0)
[2023-05-14 15:46] LABS: ALB/GLOB Ratio 1.2 RATIO (0.9-2.4); AST(SGOT) 21 U/L (15-37); Alanine Aminotransfer ALT/SGPT 39 U/L (16-61); Albumin, Serum 3.7 g/dL (3.2-5.0); Alkaline Phosphatase 56 U/L (45-117); Anion Gap 4 (5-15); BUN 17 mg/dL (7-18); BUN/Creat Ratio 13.5 RATIO (10-20); Calcium,Total 8.9 mg/dL (8.5-10.1); Chloride 102 mmol/L (98-107); Creatinine, Serum 1.26 mg/dL (0.70-1.30); EST Glomerular Filtration Rate 64 mL/min (>60); Est Glom Filt Rate - Afr Amer 78 mL/min (>60); Globulin 3.1 g/dL (2.2-4.2); Glucose 99 mg/dL (74-106); Potassium 4.1 mmol/L (3.5-5.1); Protein, Total 6.8 g/dL (6.4-8.2); Sodium Level 137 mmol/L (136-145)
[2023-05-14 15:50] LABS: Differential Indicated SCAN CRITERIA MET
[2023-05-14 17:04] LABS: Differential Comment SCANNED
== END | disposition home or self-care (01) ==
LOC: MFPLAB 12:23
PROVIDERS: PCP Family Medicine; Visit Provider Family Medicine
DX: K52.9 Noninfective gastroenteritis and colitis, unspecified (principal)
CPT/HCPCS: 36415; 80053; 85025

== ENCOUNTER 2024-02-22 13:52 | Emergency (ER) | payer SELFPAY ==
[2024-02-22 13:52] VITALS: BP 147/101; PULSE 77; RESP 16; TEMP 37.1; O2SAT 100; BMI 21.3
--- NOTE | 2024-02-22 14:30 | CT_ITS ---
STUDY: CT ABDOMEN AND PELVIS WITH CONTRAST REASON FOR EXAM: Male, 48 years old. Right flank and right lower quadrant pain RADIATION DOSAGE (If Supplied By Facility): CTDIvol = ( 12.54 ) mGy, DLP = ( 416.13 ) mGycm TECHNIQUE: Transaxial images were obtained from the dome of the diaphragm to the symphysis pubis without oral contrast. 100mL Isovue 370 was administered. Sagittal and coronal images were reconstructed. Individualized dose optimization techniques were used for this CT. COMPARISON: Comparison is made with prior study of May 06, 2023. FINDINGS: The visualized lung bases are unremarkable. The visualized portions of the heart are within normal limits. Normal liver. Normal gallbladder and extrahepatic biliary system. Normal spleen. Normal pancreas. Normal bilateral adrenal glands. Normal right kidney. Normal left kidney. Normal visualized stomach. Normal small intestine. Normal colon. The appendix is visualized and appears normal. Normal abdominal aorta. Normal inferior vena cava. Normal retroperitoneum. Distended urinary bladder. Mildly enlarged prostate with calcifications. Normal abdominal wall. Normal osseous structures. CT/Abdomen/Pelvis W IV Cont ONLY IMPRESSION: Normal enhanced CT of the abdomen and pelvis. Electronically Signed: Emmett Ortega MD at 15:28 EST ,
[2024-02-22] MEDS: 0.9% Normal Saline (1000mL) 1,000 ML 999 ML IV (14:51)
[2024-02-22] MEDS: Ondansetron 4 MG/2 ML Vial IV (14:52)
[2024-02-22] MEDS: Morphine 4 MG/ML Syringe IV (14:52)
[2024-02-22 14:53] LABS: Absolute Lymphocyte Count 1.16 X10^3/uL (0.83-4.51); Absolute Neutrophil Count 3.6 X10^3/uL (2.0-7.7); Basophil# 0.03 X10^3/uL; Basophil% 0.5 % (0-1); Hematocrit 43.3 % (40-54); Hemoglobin 14.8 g/dL (13.0-16.5); Lymphocyte # 1.16 X10^3/ul (0.83-4.51); Lymphocyte % 20.9 % (19-41); Mean Corp Hgb Conc 34.2 g/dL (32-36); Mean Corpuscular Hgb 31.4 pg (27.0-32.0); Mean Corpuscular Volume 91.7 fL (80-94); Mean Platelet Vol. 10.4 fl (6.2-12.0); Monocyte# 0.72 X10^3/uL; Monocyte% 12.9 % (0-10); NRBC Flagged by Analyzer 0 % (0-5); Neutrophil # 3.62 X10^3/uL (2.7-7.7); Neutrophil % 65.2 % (47-70); Platelet Count 234 K/mm3 (150-450); RBC Distribution Width CV 11.5 % (11.6-14.6); RBC Distribution Width SD 38.9 fl (35.1-43.9); Red Blood Count 4.72 M/mm3 (4.6-6.2); White Blood Count 5.6 K/mm3 (4.4-11.0)
--- NOTE | 2024-02-22 14:59 | EX.ED.DYSGE1 ---
HPI History of Present Illness Chief Complaint: Complaint Narrative Narrative: Chief complaint and HPI: Foul-smelling urine, right flank and abdominal pain. 48-year-old male with past medical history of colitis presents for evaluation of foul-smelling urine and right flank/abdominal pain. Patient states for the past 3 days he has had diarrhea and some vague abdominal pain. He states he thought he was developing colitis. He states he then developed foul-smelling urine and today developed right flank abdominal pain. He states that the pain radiates to the right lower quadrant. He denies any fever, vomiting, chest pain, shortness of breath, URI symptoms, hematuria. He does endorse nausea. Review of systems: See HPI Medications: As listed on the chart Allergies: As listed on the chart PFSH: Per chart Vital signs: As listed on the chart. Reviewed. Physical exam: Gen: A&O x3, NAD Head: Normocephalic, atraumatic Eyes: No sclera icterus, conjunctiva clear ENT: Moist mucous membranes Neck: Trachea midline, No JVD CV: RRR, no murmurs, no peripheral edema Resp: Lungs CTA BL, no w/r/c GI: Abd soft, non-distended tender to palpation in the right flank and right lower quadrant,, no r/r Musc: Full ROM, no deformity Skin: Warm, dry Neuro: Alert, oriented, grossly intact, sensation intact Psych: Cooperative, appropriate mood and affect [facility] Medical History Laceration of left elbow Home Medications ?Medication ?Instructions ?Recorded ?Last Taken ?Type escitalopram oxalate 10 mg tablet 10 mg PO DAILY 05/21/23 Unknown History (Lexapro) Allergy/AdvReac Type Severity Reaction Status Date / Time codeine Allergy PT UNSURE Verified 02/22/24 13:54 OF REACTION Social History (Updated 05/21/23 @ 08:02 by Christine Shanks LPN) Smoking Status: Former smoker alcohol intake: current substance use type: marijuana EXAM Physical Exam Const Vital Signs: 02/22/24 13:52 02/22/24 15:52 Temperature 98.8 F Temperature Source Oral Pulse Rate 77 71 Respiratory Rate 16 18 Blood Pressure 147/101 H 136/88 H Blood Pressure Mean 116 104 Pulse Ox 100 99 Oxygen Delivery Method Room Air Room Air MDM MDM MDM Narrative Medical decision making narrative: 48-year-old male with past medical history of colitis presents for evaluation of foul-smelling urine and right flank/abdominal pain. Differential diagnosis includes but is not limited to UTI, pyelonephritis, urolithiasis, appendicitis. NS bolus, Zofran, morphine ordered for symptoms. Abdominal pain workup ordered. CBC without leukocytosis or anemia. CMP unremarkable without BIJU, electrolyte abnormality, transaminitis. Lipase mildly elevated at 83. UA positive for blood and leuk esterase. Negative for nitrates. No WBCs or bacteria. Possible UTI. Will send for culture. CT abdomen pelvis without any acute abnormality. At this point in time, no clear etiology to explain patient's symptoms. However given his right flank pain, dysuria, and questionable UTI we will treat for pyelonephritis as patient is clinically presenting as pyelonephritis. Rocephin ordered. Patient will be discharged home on antibiotics and Zofran. Follow-up with PCP. Return precautions explained. He confirmed understand of the plan. Impression: 1. Right flank pain 2. Concern for pyelonephritis Lab Data Labs: Laboratory Results - last 24 hr 02/22/24 02/22/24 14:40 16:10 WBC 5.6 RBC 4.72 Hgb 14.8 Hct 43.3 MCV 91.7 MCH 31.4 MCHC 34.2 RDW Std Deviation 38.9 RDW Coeff of Jessika 11.5 L Plt Count 234 MPV 10.4 Immature Gran % (Auto) 0.500 Neut % (Auto) 65.2 Lymph % (Auto) 20.9 [place] % (Auto) 12.9 H Eos % (Auto) 0.0 Baso % (Auto) 0.5 Absolute Neuts (auto) 3.6 Absolute Lymphs (auto) 1.16 Nucleated RBC % 0 Sodium 136 Potassium 4.2 Chloride 105 Carbon Dioxide 25.0 Anion Gap 6 BUN 14 Creatinine 1.09 Estim Creat Clear Calc 75.20 Est GFR (MDRD) Af Amer 92 Est GFR (MDRD) Non-Af 76 BUN/Creatinine Ratio 12.8 Glucose 99 Calcium 9.5 Total Bilirubin 0.60 AST 22 ALT 23 Alkaline Phosphatase 64 Total Protein 7.3 Albumin 4.0 Globulin 3.3 Albumin/Globulin Ratio 1.2 Lipase 83 H Urine Color Yellow Urine Clarity Clear Urine pH 5.0 Ur Specific [place] 1.025 Urine Protein 30 H Urine Glucose (UA) Normal Urine Ketones 50 H Urine Occult Blood 25 H Urine Nitrite Negative Urine Bilirubin Negative Urine Urobilinogen Normal Ur Leukocyte Esterase 25 H Urine RBC 0-5 SEEN Urine WBC 0-5 SEEN Ur Squamous Epith Cells 0 SEEN Urine Bacteria 0 SEEN Urine Mucus 0 SEEN Radiography Diagnostic Testing: Clinical Impression(s) from Imaging Studies Abdomen/Pelvis CT 02/22/24 14:30 IMPRESSION: Normal enhanced CT of the abdomen and pelvis. Electronically Signed: Emmett Ortega MD at 15:28 EST , Discharge Plan Triage Chief Complaint: Complaint ED Provider: Tima Tang Dx/Rx/DC Orders Prescriptions: No Action escitalopram oxalate [Lexapro] 10 mg tablet 10 mg PO DAILY Primary Care Provider: Vik Marino Referrals: Vik Marino MD [Primary Care Provider] - Print Language: Malaysian
[2024-02-22 15:18] LABS: ALB/GLOB Ratio 1.2 RATIO (0.9-2.4); AST(SGOT) 22 U/L (15-37); Alanine Aminotransfer ALT/SGPT 23 U/L (16-61); Alkaline Phosphatase 64 U/L (45-117); Anion Gap 6 (5-15); BUN 14 mg/dL (7-18); BUN/Creat Ratio 12.8 RATIO (10-20); Calcium,Total 9.5 mg/dL (8.5-10.1); Chloride 105 mmol/L (98-107); Creatinine, Serum 1.09 mg/dL (0.70-1.30); EST Glomerular Filtration Rate 76 mL/min (>60); Est Glom Filt Rate - Afr Amer 92 mL/min (>60); Globulin 3.3 g/dL (2.2-4.2); Glucose 99 mg/dL (74-106); Lipase 83 U/L (13-75); Potassium 4.2 mmol/L (3.5-5.1); Protein, Total 7.3 g/dL (6.4-8.2); Sodium Level 136 mmol/L (136-145)
[2024-02-22 15:52] VITALS: BP 136/88; PULSE 71; RESP 18; O2SAT 99
[2024-02-22 16:16] LABS: Bacteria 0 SEEN /hpf (None Seen); Mucous, Urine 0 SEEN /hpf (<or=2+); Squamous Epithelial Cells - UA 0 SEEN /hpf (0-5)
[2024-02-22 16:26] LABS: Color, Urine Yellow (Yellow); Glucose, Dipstick Normal (Normal); Ketone-Dipstick 50 mg/dl (Negative); Leukocyte Esterase-Dipstick 25 /ul (Negative); Nitrite-Dipstick Negative (Negative); Occult Blood-Urine 25 /ul (Negative); Protein-Dipstick 30 mg/dl (Negative); Specific Gravity, Urine 1.025 (1.002-1.030); Urine Bilirubin Dipstick Negative (Negative); Urine Clarity Clear (Clear); Urine Urobilinogen Normal (Normal)
[2024-02-22 16:41] LABS: Red Blood Cells-Urine 0-5 SEEN /hpf (0-5); White Blood Cells 0-5 SEEN /hpf (0-5)
[2024-02-22] MEDS: Ceftriaxone 1 GM/50 ML BAG IV (17:25)
[2024-02-22 17:26] VITALS: BP 122/84; PULSE 74; RESP 16; O2SAT 98
[2024-02-22 17:30] VITALS: BP 122/84; PULSE 64; RESP 16; TEMP 36.8; O2SAT 97
== END 2024-02-22 17:57 | disposition home or self-care (01) ==
PROVIDERS: Emergency Provider Surgery; PCP Family Medicine; Visit Provider Surgery
DX: N12 Tubulo-interstitial nephritis, not specified as acute or chronic (principal); R30.0 Dysuria; Z79.899 Other long term (current) drug therapy; Z87.891 Personal history of nicotine dependence

== ENCOUNTER → 2024-03-20 | Outpatient (CLI) | payer MEDICAID, SELFPAY ==
[2024-03-20 13:04] LABS: Absolute Lymphocyte Count 2.81 X10^3/uL (0.83-4.51); Absolute Neutrophil Count 2.7 X10^3/uL (2.0-7.7); Basophil# 0.06 X10^3/uL; Eosinophil# 0.19 X10^3/uL; Eosinophils% 3.1 % (0-5); Hematocrit 42.2 % (40-54); Hemoglobin 14.1 g/dL (13.0-16.5); Lymphocyte # 2.81 X10^3/ul (0.83-4.51); Lymphocyte % 45.2 % (19-41); Mean Corp Hgb Conc 33.4 g/dL (32-36); Mean Corpuscular Hgb 31.9 pg (27.0-32.0); Mean Corpuscular Volume 95.5 fL (80-94); Mean Platelet Vol. 10.2 fl (6.2-12.0); Monocyte# 0.47 X10^3/uL; Monocyte% 7.6 % (0-10); NRBC Flagged by Analyzer 0 % (0-5); Neutrophil # 2.66 X10^3/uL (2.7-7.7); Neutrophil % 42.6 % (47-70); Platelet Count 218 K/mm3 (150-450); RBC Distribution Width CV 12.3 % (11.6-14.6); RBC Distribution Width SD 43.3 fl (35.1-43.9); Red Blood Count 4.42 M/mm3 (4.6-6.2); White Blood Count 6.2 K/mm3 (4.4-11.0)
[2024-03-20 13:28] LABS: ALB/GLOB Ratio 0.9 RATIO (0.9-2.4); AST(SGOT) 58 U/L (15-37); Alanine Aminotransfer ALT/SGPT 158 U/L (16-61); Albumin, Serum 3.5 g/dL (3.2-5.0); Alkaline Phosphatase 63 U/L (45-117); Anion Gap 4 (5-15); BUN 11 mg/dL (7-18); BUN/Creat Ratio 12.2 RATIO (10-20); Calcium,Total 8.8 mg/dL (8.5-10.1); Chloride 105 mmol/L (98-107); Cholesterol 187 mg/dL (200); EST Glomerular Filtration Rate 94 mL/min (>60); Est Glom Filt Rate - Afr Amer 114 mL/min (>60); Globulin 3.8 g/dL (2.2-4.2); Glucose 93 mg/dL (74-106); High Density Lipoprotein 73 mg/dL; PSA,Total - Annual Screen 0.66 ng/mL (0.00-4.00); Potassium 4.7 mmol/L (3.5-5.1); Protein, Total 7.3 g/dL (6.4-8.2); Sodium Level 134 mmol/L (136-145); Thyroid Stim Hormone (TSH) 0.689 uIU/mL (0.358-3.740); Triglycerides 79 mg/dL; Very Low Density Lipoprotein 16 mg/dL (5-40)
[2024-03-20 14:10] LABS: Hemoglobin A1c 5.5 % (3.8-5.6)
== END | disposition home or self-care (01) ==
LOC: VSLAB 09:40
PROVIDERS: PCP Family Medicine; Visit Provider Family Medicine
DX: Z13.6 Encounter for screening for cardiovascular disorders (principal); Z13.228 Encounter for screening for other metabolic disorders; Z12.5 Encounter for screening for malignant neoplasm of prostate
CPT/HCPCS: 36415; 80053; 80061; 83036; 84153; 84443; 85025; G0103

== ENCOUNTER → 2024-04-16 | Outpatient (CLI) | payer MEDICAID, SELFPAY ==
--- NOTE | 2024-04-16 19:05 | CT_ITS ---
PROCEDURE: CT chest without IV contrast REASON FOR EXAM: SOLITARY PULMONARY NODULE TECHNIQUE: Chest CT without contrast. COMPARISON: None. FINDINGS: Heart size is within normal limits. No significant pericardial effusion or coronary artery calcifications. Normal caliber thoracic aorta and pulmonary arteries. No bulky adenopathy. No significant findings in the visualized upper abdomen. Superficial soft tissues are within normal limits. Central airways are patent. No acute infiltrates, pleural effusion or pneumothorax. Minimal biapical pleural-parenchymal scarring. Calcified pulmonary granuloma in the left lower lobe. No suspicious pulmonary nodule or mass. No acute osseous abnormality. CT/Chest without Contrast IMPRESSION: 1. No suspicious pulmonary nodule or mass. 2. Calcified granuloma in the left lower lobe. One or more dose reduction techniques were used (e.g., Automated exposure contr ol, adjustment of the mA and/or kV according to patient size, use of iterative reconstruction technique). Reading Location: [id number]
== END | disposition home or self-care (01) ==
LOC: CT 19:04
PROVIDERS: PCP Family Medicine; Referring Provider Family Medicine; Visit Provider Family Medicine
DX: R91.1 Solitary pulmonary nodule (principal)
CPT/HCPCS: 71250